=== PATIENT | male | born 1995 | race Hispanic/Latino ===

== ENCOUNTER 2016-03-06 17:35 | Emergency (ER) | payer OTHER ==
[~2016-03-06] VITALS: Ht 167.6 cm; Wt 68.0 kg
[~2016-03-06 17:35] MED LIST: CEFP500T4 PO; GNT.3OO351 OD
[2016-03-06] MEDS ORDERED: FAMOTIDINE 20MG/2ML IV (PEPCID) IV STA (18:13)
--- NOTE | 2016-03-06 18:13 | ED Abdominal Pain ---
General Chief Complaint: Abdominal/GI Problems Stated Complaint: L SIDE ABD PAIN Nursing Triage Note: L SIDE PAIN ONSET A COUPLE DAYS AGO. UNABLE TO WORK TODAY DUE TO PAIN. PAIN IS WORSE WITH MOVEMENT. Sepsis Screen: No Definite Risk Source of Information: Patient Exam Limitations: No Limitations (HARMONY CARTER MD) History of Present Illness Time Seen By Provider: 17:36 Initial Comments This 20-year-old man presents to the emergency room with complaints of left flank pain 2 days. Pain has worsened today. He reports having dry heaves in the mornings for several months. He denies any urinary changes, dysuria, nausea , diarrhea, constipation, fever, or cough. Pain is worse with inspiration. He took ibuprofen yesterday but no pain medications today. He typically drinks alcohol weekly but just returned from a vacation in [place] where he drank more excessively. Patient has a history of spontaneous pneumothorax for which she was admitted for observation. No procedures were required. Last meal was steak and tacos within the last hour. Eating did not seem to affect his pain. He rates his pain as 8/10. (HARMONY CARTER MD) Allergies and Home Medications Allergies Coded Allergies: No Known Drug Allergies (Verified , 01/11/09) Home Medications Cyclobenzaprine HCl 10 Mg Tablet #15 10 MG PO Q8H Prescribed by: DAMIAN MUIR on 03/06/162004 Hyoscyamine Sulfate 0.125 Mg Tab.subl #15 1-2 TAB SL Q4H Prescribed by: DAMIAN MUIR on 03/06/162004 Naproxen 500 Mg Tablet #20 500 MG PO BID Prescribed by: DAMIAN MUIR on 03/06/162004 Ondansetron 4 Mg Tab.rapdis #10 4 MG PO Q4H Prescribed by: DAMIAN MUIR on 03/06/162004 Pantoprazole Sodium 40 Mg Tablet.dr #15 40 MG PO DAILY Prescribed by: DAMIAN MUIR on 03/06/162004 Review of Systems Constitutional: no symptoms reported EENTM: No Symptoms Reported Respiratory: See HPI Cardiovascular: No Symptoms Reported Gastrointestinal: See HPI Genitourinary: No Symptoms Reported Musculoskeletal: see HPI Skin: no symptoms reported Psychiatric/Neurological: No Symptoms Reported Endocrine: No Symptoms Reported (HARMONY CARTER MD) Past Rhdlrgy-Vxnjrc-Rsuhjy Hx Patient Social History Alcohol Use: Rarely Uses Recreational Drug Use: No Smoking Status: Never a Smoker Recent Foreign Travel: No Contact w/Someone Who Travel: No Recent Infectious Disease Expo: No Recent Hopitalizations: No Physical Abuse Screen: No Sexual Abuse: No (HARMONY CARTER MD) Surgeries HX Surgeries: Yes (HERNIA, RT WRIST) Surgeries: Abdominal (inguinal hernia), Orthopedic (HARMONY CARTER MD) Respiratory Hx Respiratory Disorders: Yes (spontaneous pneumothorax) (HARMONY CARTER MD) Cardiovascular Hx Cardiac Disorders: No (HARMONY CARTER MD) Neurological Hx Neurological Disorders: No (HARMONY CARTER MD) Reproductive System Hx Reproductive Disorders: No (HARMONY CARTER MD) Genitourinary Hx Genitourinary Disorders: No (HARMONY CARTER MD) Gastrointestinal Hx Gastrointestinal Disorders: No (HARMONY CARTER MD) Musculoskeletal Hx Musculoskeletal Disorders: No (HARMONY CARTER MD) Endocrine Hx Endocrine Disorders: No (HARMONY CARTER MD) HEENT HX ENT Disorders: No (HARMONY CARTER MD) Cancer Hx Cancer: No (HARMONY CARTER MD) Psychosocial Hx Psychiatric Problems: No (HARMONY CARTER MD) Integumentary HX Skin/Integumentary Disorder: No (HARMONY CARTER MD) Blood Transfusions Hx Blood Disorders: No (HARMONY CARTER MD) Family Medical History Significant Family History: No Pertinent Family Hx (HARMONY CARTER MD) Physical Exam Vital Signs VS - Last 72 Hours, by Label 03/06/16 03/06/16 17:56 20:13 Temp 96.7 Pulse 77 82 Resp 16 18 B/P 110/74 Pulse Ox 96 (DAMIAN MUIR DO) Vital Signs Capillary Refill : Less Than 3 Seconds (HARMONY CARTER MD) General Appearance: WD/WN no apparent distress HEENT: PERRL/EOMI normal ENT inspection Neck: normal inspection Respiratory: lungs clear normal breath sounds no respiratory distress no accessory muscle use other (left lower posterior chest wall tender to palpation) Cardiovascular: regular rate, rhythm no edema no murmur Gastrointestinal: normal bowel sounds soft guarding tenderness (left upper quadrant and epigastrium) other (palpation of the right upper quadrant causes pain in the left upper quadrant) Extremities: normal inspection no pedal edema Back: normal inspection 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 no motor/sensory deficits alert normal mood/affect oriented x 3 Skin: normal color diaphoresis (HARMONY CARTER MD) Progress/Results/Core Measures Results/Orders Lab Results Laboratory Tests Test 03/06/16 18:20 03/06/16 18:41 Range/Units Alanine Aminotransferase (ALT/SGPT) 26 0-55 U/L Albumin 5.0 H 3.2-4.5 G/DL Alkaline Phosphatase 86 40-136 U/L Anion Gap 11 5-14 MMOL/L Aspartate Amino Transf (AST/SGOT) 28 5-34 U/L BUN/Creatinine Ratio 10 Basophils # (Auto) 0.0 0.0-0.1 10^3/uL Basophils (%) (Auto) 0 0-10 % Blood Urea Nitrogen 10 7-18 MG/DL Calcium Level 9.6 8.5-10.1 MG/DL Carbon Dioxide Level 26 21-32 MMOL/L Chloride Level 103 98-107 MMOL/L Creatinine 0.97 0.60-1.30 MG/DL Eosinophils # (Auto) 0.0 0.0-0.3 10^3/uL Eosinophils (%) (Auto) 0 0-10 % Estimat Glomerular Filtration Rate > 60 Glucose Level 92 70-105 MG/DL Hematocrit 46 40-54 % Hemoglobin 15.3 13.3-17.7 G/DL Lipase 18 8-78 U/L Lymphocytes # (Auto) 1.9 1.0-4.0 X 10^3 Lymphocytes (%) (Auto) 20 12-44 % Mean Corpuscular Hemoglobin 28 25-34 PG Mean Corpuscular Hemoglobin Concent 34 32-36 G/DL Mean Corpuscular Volume 84 80-99 FL Mean Platelet Volume 10.1 7.4-10.4 FL Monocytes # (Auto) 1.1 H 0.0-1.0 X 10^3 Monocytes (%) (Auto) 12 0-12 % Neutrophils # (Auto) 6.1 1.8-7.8 X 10^3 Neutrophils (%) (Auto) 67 42-75 % Platelet Count 229 130-400 10^3/uL Potassium Level 4.0 3.6-5.0 MMOL/L Red Blood Count 5.45 4.35-5.85 10^6/uL Red Cell Distribution Width 13.0 10.0-14.5 % Sodium Level 140 135-145 MMOL/L Total Bilirubin 0.6 0.1-1.0 MG/DL Total Protein 7.9 6.4-8.2 G/DL White Blood Count 9.1 4.3-11.0 10^3/uL Urine Bacteria NEGATIVE /HPF Urine Bilirubin NEGATIVE NEGATIVE Urine Casts NONE /LPF Urine Clarity SLIGHTLY CLOUDY Urine Color YELLOW Urine Crystals NONE /LPF Urine Culture Indicated NO Urine Glucose (UA) NEGATIVE NEGATIVE Urine Ketones NEGATIVE NEGATIVE Urine Leukocyte Esterase NEGATIVE NEGATIVE Urine Mucus NEGATIVE /LPF Urine Nitrite NEGATIVE NEGATIVE Urine Protein NEGATIVE NEGATIVE Urine RBC NONE /HPF Urine RBC (Auto) NEGATIVE NEGATIVE Urine Specific Brohman 1.005 L 1.016-1.022 Urine Urobilinogen NORMAL NORMAL MG/DL Urine WBC 0-2 /HPF Urine pH 7 5-9 (INGA,DAMIAN K DO) Lab Results Laboratory Tests Test 03/06/16 18:20 Range/Units Basophils # (Auto) 0.0 0.0-0.1 10^3/uL Basophils (%) (Auto) 0 0-10 % Eosinophils # (Auto) 0.0 0.0-0.3 10^3/uL Eosinophils (%) (Auto) 0 0-10 % Hematocrit 46 40-54 % Hemoglobin 15.3 13.3-17.7 G/DL Lymphocytes # (Auto) 1.9 1.0-4.0 X 10^3 Lymphocytes (%) (Auto) 20 12-44 % Mean Corpuscular Hemoglobin 28 25-34 PG Mean Corpuscular Hemoglobin Concent 34 32-36 G/DL Mean Corpuscular Volume 84 80-99 FL Mean Platelet Volume 10.1 7.4-10.4 FL Monocytes # (Auto) 1.1 H 0.0-1.0 X 10^3 Monocytes (%) (Auto) 12 0-12 % Neutrophils # (Auto) 6.1 1.8-7.8 X 10^3 Neutrophils (%) (Auto) 67 42-75 % Platelet Count 229 130-400 10^3/uL Red Blood Count 5.45 4.35-5.85 10^6/uL Red Cell Distribution Width 13.0 10.0-14.5 % White Blood Count 9.1 4.3-11.0 10^3/uL (HARMONY CARTER MD) My Orders Orders-DAMIAN MUIR DO Ct Abdomen/Pelvis W (03/06/16 19:08) Iohexol Injection (Omnipaque 350 Mg/Ml 1 (03/06/16 19:30) Ns (Ivpb) (Sodium Chloride 0.9% Ivpb Bag (03/06/16 19:30) (DAMIAN MUIR DO) Medications Given in ED Current Medications Medications Dose Ordered Sig/Kathy Route Start Time Stop Time Status Last Admin Dose Admin Al Hydrox/Mg Hydrox/Simethicone 30 ml ONCE ONCE PO 03/06/16 18:15 03/06/16 18:16 DC 03/06/16 18:22 30 ML Fentanyl Citrate 50 mcg ONCE ONCE IVP 03/06/16 18:15 03/06/16 18:16 DC 03/06/16 18:21 50 MCG Iohexol 100 ml ONCE ONCE IV 03/06/16 19:30 03/06/16 19:31 DC 03/06/16 19:22 100 ML Lidocaine HCl 15 ml ONCE ONCE PO 03/06/16 18:15 03/06/16 18:16 DC 03/06/16 18:22 15 ML Sodium Chloride 100 ml ONCE ONCE IV 03/06/16 19:30 03/06/16 19:31 DC 03/06/16 19:22 100 ML (DAMIAN MUIR DO) Medications Given in ED Current Medications Medications Dose Ordered Sig/Kathy Route Start Time Stop Time Status Last Admin Dose Admin Al Hydrox/Mg Hydrox/Simethicone 30 ml ONCE ONCE PO 03/06/16 18:15 03/06/16 18:16 DC 03/06/16 18:22 30 ML Fentanyl Citrate 50 mcg ONCE ONCE IVP 03/06/16 18:15 03/06/16 18:16 DC 03/06/16 18:21 50 MCG Lidocaine HCl 15 ml ONCE ONCE PO 03/06/16 18:15 03/06/16 18:16 DC 03/06/16 18:22 15 ML (HARMONY CARTER MD) Vital Signs/I&O Vital Sign - Last 12Hours 03/06/16 03/06/16 17:56 20:13 Temp 96.7 Pulse 77 82 Resp 16 18 B/P 110/74 Pulse Ox 96 (DAMIAN MUIR DO) Blood Pressure Mean: 86 Progress Note #1: Time: 18:22 Progress Note Patient was seen and examined. Labs were drawn. Trial of GI cocktail and Pepcid will be administered. Chest x-ray was ordered as patient had a prior spontaneous pneumothorax on the left. Progress Note #2: Time: 18:41 Progress Note Patient has had modest improvement in pain with GI cocktail and Pepcid. Labs and UA are pending. X-ray was unremarkable. Care of this patient was transferred to Dr. Muir at this time. (HARMONY CARTER MD) Progress Note : Progress Note 1900--ASSUMED CARE FROM DR. CARTER, ALL STUDIES BACK PT STATES HE HAD HAD LUQ/LEFT FLANK PAIN OFF AND ON TODAY, BUT HAS HAD DRY HEAVES EVERY DAY FOR YEARS--STATES HE HAS IT IN THE MORNING WHEN HE IS HUNGRY, BUT ALSO HAS IT THROUGHOUT THE DAY. NO DIFFERENT TODAY, HAS NOT SOUGHT CARE UNTIL TODAY. HAS TAKEN NOTHING FOR SYMPTOMS. PAIN IS WORSE WITH MOVEMENTS, POSITIONS OR WITH LIFTING THINGS. NO INJURY NO DIARRHEA NO URINARY SYMPTOMS PT STATES ALL SYMPTOMS ARE GONE AT THIS TIME. (DAMIAN MUIR DO) Diagnostic Imaging Diagonstic Imaging: Xray Plain Films/CT/US/NM/MRI: chest Comments Chest x-ray viewed by me and report reviewed. See report below: NAME: [facility] REC#: [id number] PT STATUS: REG ER : 1995 PHYSICIAN: HARMONY CARTER MD ADMIT DATE: 03/06/16/ER Draft Date of Exam:03/06/16 CHEST PA/LAT (2 VIEW) INDICATION: Left-sided chest wall pain. No history of trauma. Comparison with 08/01/2015. FINDINGS: The lungs are well aerated. There are no infiltrates. The heart is not enlarged. No hilar adenopathy. No evidence of pneumothorax or pleural effusions. No bony abnormalities. IMPRESSION: Normal PA and and lateral chest. Dictated on workstation # [id number] Dict: 03/06/16 1831 Trans: 03/06/16 183 [facility] [id number] Interpreted by: LINDA BEYER MD (HARMONY CARTER MD) Comments CT ABDOMEN/PELVIS--NO ACUTE PROCESS, PER RADIOLOGIST REPORT AT 1955 Reviewed: Reviewed by Me (DAMIAN MUIR DO) Departure Impression Impression: Primary Impression: Abdominal pain Additional Impression: CHRONIC NAUSEA AND DRY HEAVES Disposition: HOME, SELF-CARE Condition: Improved Departure-Patient Inst. Referrals: NO,LOCAL PHYSICIAN (PCP/Family) Primary Care Physician Patient Instructions: Acute Abdomen (Belly Pain), Adult (DC), Nausea and Vomiting, Adult (DC) Add. Discharge Instructions: CLEAR LIQUIDS--WATER, BROTH, JELLO, GATORADE. NO ALCOHOL BLAND DIET--NO SPICY, GREASY/HIGH FAT OR ACIDIC FOOD OR DRINK FOLLOW UP WITH DR OF CHOICE FOR FURTHER CARE--LIST PROVIDED All discharge instructions reviewed with patient and/or family. Voiced understanding. Scripts Ondansetron (Zofran Odt)4 Mg Tab.rapdis4 Mg PO Q4H Nausea/Vomiting #10 TAB Prov:DAMIAN MUIR DO 03/06/16 Pantoprazole Sodium (Protonix)40 Mg Tablet.dr40 Mg PO DAILY #15 TAB Prov:DAMIAN MUIR DO 03/06/16 Naproxen 500 Mg [id number] Mg PO BID #20 TAB Prov:DAMIAN MUIR DO 03/06/16 Hyoscyamine Sulfate (Levsin-Sl)0.125 Mg Tab.subl1-2 Tab SL Q4H Abdominal Pain # 15 TAB Prov:DAMIAN MUIR DO 03/06/16 Cyclobenzaprine HCl 10 Mg Iopjtu24 Mg PO Q8H #15 TAB Prov:DAMIAN MUIR DO 03/06/16 Work/School Note: Local Medical Staff Listing HARMONY CARTER MD Mar 06, 2016 18:12 DAMIAN MUIR DO Mar 06, 2016 20:05
[2016-03-06] MEDS ORDERED: ANTACID SUSP 30 ML UDC (MYLANTA) PO ONE (18:15)
[2016-03-06] MEDS ORDERED: fentaNYL INJECTION 100 MCG/2 ML AMP IVP ONE (18:15)
[2016-03-06] MEDS ORDERED: LIDOCAINE 2% VISCOUS 15 ML UDC PO ONE (18:15)
--- NOTE | 2016-03-06 18:35 | Diagnostic Imaging Report ---
INDICATION: Left-sided chest wall pain. No history of trauma. Comparison with 08/01/2015. FINDINGS: The lungs are well aerated. There are no infiltrates. The heart is not enlarged. No hilar adenopathy. No evidence of pneumothorax or pleural effusions. No bony abnormalities. IMPRESSION: Normal PA and and lateral chest. Dictated by: Dictated on workstation # [id number]
[2016-03-06 18:37] LABS: BASOPHILS % (AUTO) 0 % (0-10); EOSINOPHILS % (AUTO) 0 % (0-10); LYMPHOCYTES # (AUTO) 1.9 X 10^3 (1.0-4.0); LYMPHOCYTES % (AUTO) 20 % (12-44); MEAN CORPUSCULAR HEMOGLOBIN 28 PG (25-34); MEAN CORPUSCULAR HGB CONC 34 G/DL (32-36); MEAN CORPUSCULAR VOLUME 84 FL (80-99); MEAN PLATELET VOLUME 10.1 FL (7.4-10.4); MONOCYTES # (AUTO) 1.1 X 10^3 (0.0-1.0); MONOCYTES % (AUTO) 12 % (0-12); NEUTROPHILS # (AUTO) 6.1 X 10^3 (1.8-7.8); NEUTROPHILS % (AUTO) 67 % (42-75); PLATELET COUNT 229 10^3/uL (130-400); RED BLOOD COUNT 5.45 10^6/uL (4.35-5.85); WHITE BLOOD COUNT 9.1 10^3/uL (4.3-11.0)
[2016-03-06 18:49] LABS: BILIRUBIN,URINE NEGATIVE (NEGATIVE); KETONES,URINE NEGATIVE (NEGATIVE); LEUKOCYTE ESTERASE ,URINE NEGATIVE (NEGATIVE); NITRITE,URINE NEGATIVE (NEGATIVE); PH,URINE 7 (5-9); PROTEIN,URINE NEGATIVE (NEGATIVE); UROBILINOGEN,URINE NORMAL (NORMAL)
[2016-03-06 18:56] LABS: ANION GAP 11 MMOL/L (5-14); BLOOD UREA NITROGEN 10 MG/DL (7-18); BUN/CREATININE RATIO 10; CARBON DIOXIDE 26 MMOL/L (21-32); CHLORIDE 103 MMOL/L (98-107); CREATININE SERUM 0.97 MG/DL (0.60-1.30); SODIUM 140 MMOL/L (135-145)
[2016-03-06 18:57] LABS: ALANINE AMINOTRANSFERASE 26 U/L (0-55); ASPARTATE AMINO TRANSFERASE 28 U/L (5-34); BILIRUBIN,TOTAL 0.6 MG/DL (0.1-1.0); CALCIUM 9.6 MG/DL (8.5-10.1); GFR ESTIMATED > 60; GLUCOSE 92 MG/DL (70-105); LIPASE 18 U/L (8-78); TOTAL PROTEIN 7.9 G/DL (6.4-8.2)
[2016-03-06 19:01] LABS: WBC,URINE 0-2 /HPF
[2016-03-06] MEDS ORDERED: NS 100 ML (IVPB) BAG IV ONE (19:30)
[2016-03-06] MEDS ORDERED: IOHEXOL 350 MG/ML 100 ML (OMNIPAQUE 350) VIAL IV ONE (19:30)
--- NOTE | 2016-03-06 19:45 | Diagnostic Imaging Report ---
PROCEDURE: CT abdomen and pelvis with contrast. TECHNIQUE: Multiple contiguous axial images were obtained through the abdomen and pelvis after administration of intravenous contrast. INDICATION: Left flank pain x2 days. FINDINGS: The lung bases are clear. The kidneys show symmetrical nephrogram effect. There are no renal calculi. No renal obstruction. No renal masses. Ureters are not dilated. Bladder appears normal with no calculi. Liver appears normal. Gallbladder and bile ducts are normal. The pancreas and spleen are normal. Adrenal glands are not enlarged. Aorta and abdominal vessels enhance in a normal fashion. Stomach and small bowel appear normal with no distended bowel loops. There is normal stool and gas pattern to the colon. The appendix is not dilated. No evidence of colitis or diverticulitis. There is no free air or free fluid. IMPRESSION: Normal CT scan of the abdomen and pelvis with contrast. Dictated by: Dictated on workstation # [id number]
[2016-03-06] MEDS ORDERED: ONDA4TAB8 PO (20:05)
[2016-03-06] MEDS ORDERED: NAPR500T3 PO (20:05)
[2016-03-06] MEDS ORDERED: HYOS0.1283 SL (20:05)
[2016-03-06] MEDS ORDERED: CYCL10TA9 PO (20:05)
[2016-03-06] MEDS ORDERED: PANT40TA2 PO (20:05)
[2016-03-06 20:13] VITALS: BP 124/71
== END 2016-03-06 20:12 | disposition home or self-care (01) ==
LOC: EDUNIT# 17:35 → ER 17:37
DX: R10.32 Left lower quadrant pain (principal); R10.13 Epigastric pain; R11.0 Nausea
CPT/HCPCS: 36415; 71020; 74177; 80053; 81000; 83690; 85025; 96374; 96375

== ENCOUNTER 2022-03-28 12:42 | Outpatient (CLI) | payer OTHER ==
[~2022-03-28] VITALS: Ht 182.9 cm; Wt 86.1 kg
[~2022-03-28 12:42] MED LIST changes: +CYCL10TA25 PO; +HYOS0.1283 SL; +NAPR-915 PO; +ONDA4TAB8 PO; +PANT40TA2 PO
== END 2022-03-28 16:03 ==
LOC: PREOP 12:42
PROVIDERS: ATTEND Surgery
DX: Z01.818 Encounter for other preprocedural examination (principal)

== ENCOUNTER 2022-03-30 10:24 | Day surgery (SDC) | payer OTHER ==
[~2022-03-30] VITALS: Ht 182 cm; Wt 86.1 kg
[2022-03-30] MEDS ORDERED: LACTATED RINGERS 1,000 ML IV STA (10:25)
[2022-03-30] MEDS ORDERED: HURRICAINE EXT TUBE (BENZOCAINE) XX PRN (10:30)
[2022-03-30] MEDS ORDERED: LIDOCAINE JELLY 2% 6 ML SYRINGE MM PRN (10:30)
[2022-03-30 10:52] VITALS: BP 130/81
[2022-03-30] MEDS ORDERED: PROPOFOL INJECTION 50 ML IV ONE (11:35)
[2022-03-30] MEDS ORDERED: MIDAZOLAM 2 MG/2 ML (VERSED) VIAL ONE (11:35)
[2022-03-30] MEDS ORDERED: LIDOCAINE JELLY 2% 6 ML SYRINGE ONE (11:44)
[2022-03-30] MEDS ORDERED: proPOfol 200 MG/20 ML (DIPRIVAN) VIAL IV ONE (12:22)
[2022-03-30 12:25] VITALS: BP 108/61
[2022-03-30] MEDS ORDERED: PANT40TA52 PO (12:32)
--- NOTE | 2022-03-30 12:36 | Progress Note-Pre Operative ---
Pre-Operative Progress Note Date of Available H&P: Mar 30, 2022 Date H&P Reviewed: Mar 30, 2022 Time H&P Reviewed: 11:15 History & Physical: No changes noted Pre-Operative Diagnosis: perirectal pain, diarrhea, red blood per rectum and dark tarry HERMANN GLEASON MD Mar 30, 2022 12:36
--- NOTE | 2022-03-30 12:37 | Anesthesia-General Post-Op ---
MAC Patient Condition Mental Status/LOC: Same as Preop Cardiovascular: Satisfactory Nausea/Vomiting: Absent Respiratory: Satisfactory Pain: Controlled Complications: Absent Post Op Complications Complications None Follow Up Care/Instructions Patient Instructions None needed. Anesthesiology Discharge Order Discharge Order Patient is doing well, no complaints, stable vital signs, no apparent adverse anesthesia problems. No complications reported per nursing. PALMIRA MARTINEZ CRNA Mar 30, 2022 12:37
--- NOTE | 2022-03-30 12:38 | Progress Note-Post Operative ---
Post-Operative Progess Note Surgeon (s)/Occupational Health Physiotherapist (s) Surgeon HERMANN GLEASON MD Occupational Health Physiotherapist: none Pre-Operative Diagnosis perirectal pain, diarrhea, red blood per rectum and dark tarry Post-Operative Diagnosis reflux esophagitis(grade B), moderate gastritis. anterior anal fissure, mild chronic stage 2 ext and int hemorrhoids. Procedure & Operative Findings Date of Procedure 03/30/22 Procedure Performed/Findings EGD with bx. Colonoscopy Anesthesia Type mac Estimated Blood Loss Estimated blood loss (mL): minimal Specimens/Packing Specimens Removed ge jxn, antrum HERMANN GLEASON MD Mar 30, 2022 12:38
[2022-03-30 12:40] VITALS: BP 110/59
[2022-03-30] MEDS ORDERED: ONDANSETRON 4 MG/2 ML (SDV) Z0FRAN IVP PRN (12:45)
[2022-03-30] MEDS ORDERED: ONDANSETRON 4 MG (ZOFRAN) ORAL DISSOLVE TAB PO PRN (12:45)
[2022-03-30 13:11] VITALS: BP 110/59
--- NOTE | 2022-03-30 20:32 | OPERATIVE REPORT ---
DATE OF SERVICE: 03/30/2022 ATTENDING PRIMARY CARE PHYSICIAN: Dr. Papa Treadwell. PREOPERATIVE DIAGNOSES: Perianal and rectal pain, diarrhea, red blood per rectum, dark tarry stools, reflux. POSTOPERATIVE DIAGNOSES: Reflux esophagitis [place] grade B, no hiatal hernia, moderate gastritis, anterior anal fissure, mild chronic stage II external and internal hemorrhoids. PROCEDURE: EGD with biopsy, colonoscopy. SURGEON: Hermann Gleason MD ANESTHESIA: Monitored anesthesia care. ESTIMATED BLOOD LOSS: Minimal. FINDINGS: Reflux esophagitis [place] grade B, no hiatal hernia, moderate gastritis, anterior anal fissure, mild chronic stage II external and internal hemorrhoids. DISPOSITION: The patient tolerated the procedure well. INDICATIONS: The patient is a 26-year-old male who was referred over to us for blood per rectum as well as anorectal pain. He reports that this has been going on for several months and exacerbated with bowel movements. He reports that he has also had issues with diarrhea on an intermittent basis and at times did have 3-4 loose bowel movements on a daily basis. He also does report issues with heartburn and reflux; however, he does do caffeinated beverages as well as spicy foods. He reports that he may have some mild abdominal cramping in the left upper abdominal quadrant; however, never severe. DESCRIPTION OF PROCEDURE: The patient was brought to the endoscopy suite and laid in the left lateral decubitus position. After adequate IV pain and sedative medications and monitored anesthesia care, the mouthpiece was applied. The endoscope was placed in the mouth visualizing the pharynx and hypopharyngeal region. Vocal cords, epiglottis and vallecula identified and appeared to be normal. The endoscope was then gently intubated into the esophageal opening and esophagus insufflated. The endoscope was then advanced into the first, second and third portions of esophagus at the level of the GE junction, reflux esophagitis, a [place] grade B identified. No ulcers or strictures. A biopsy was taken with forceps with visualization of good hemostasis. The endoscope was then advanced into the stomach and endoscope retroflexed visualizing no hiatal hernia. There was moderate gastritis, more towards the stomach antrum, no formal ulcers, polyps, or any neoplasms. A biopsy was taken of the antrum to rule out H. pylori with visualization of good hemostasis. The endoscope was then advanced to the pylorus and the first and second portion of the duodenum, which appeared normal with no other lesions identified. The endoscope was then slowly withdrawn while taking a second look and suctioning of residual air with no additional findings. A digital rectal examination was performed, which did show mild chronic stage II external and internal hemorrhoids, not actively edematous nor inflamed and no bleeding. Normal sphincter tone was felt and there were no palpable masses. There was an anterior anal fissure, which was identified and small and appeared to be healing. Prostate gland was palpable and appeared normal. The endoscope was then intubated into the anus, rectum gently insufflated. The endoscope was then advanced to the valves of Dhillon of the rectum with no polyps or any neoplasms identified. Through the sigmoid colon, no diverticulosis identified. The endoscope was then advanced to the remainder of the descending, transverse and ascending colon to the cecum, which were normal. There were no mucosal inflammatory changes as well as no polyps or any neoplasms. The endoscope was then slowly withdrawn while taking a second look and suctioning of residual air with no additional findings. The patient tolerated the procedure well. We will recommend the necessary lifestyle and dietary accommodation including small and more frequent meals, avoidance of eating at night as well as head elevation while lying supine. He also needs to decrease caffeinated beverages as well as spicy, greasy and acidic foods. We will also start him on Protonix 40 mg daily. He also needs to proceed with a high-fiber diet with addition of a fiber supplement, which should equal or exceed 30 grams daily to promote soft consistency stools more on a daily basis and decrease the episodes of liquid diarrhea or constipation and hard stools and have a baseline soft consistency stools on a daily basis, which should help resolve and allow the fissure to heal and prevent recurrence. This will also prevent other benign issues of the colon, rectum and anus. No polyps were identified. From a standpoint of followup colonoscopy, he does not need another one until he is age 45, unless he is symptomatic. Job ID: [id number] DocumentID: [id number] Dictated Date: 03/30/2022 12:27:56 Fruit Grader Operator Date: 03/30/2022 20:30:00 Dictated By: HERMANN GLEASON MD
== END 2022-03-30 13:11 | disposition home or self-care (01) ==
LOC: ENDO 10:24
PROVIDERS: ATTEND Surgery
DX: K60.2 Anal fissure, unspecified (principal); K21.01 Gastro-esophageal reflux disease with esophagitis, with bleeding; K29.71 Gastritis, unspecified, with bleeding; K64.1 Second degree hemorrhoids; K64.4 Residual hemorrhoidal skin tags; Z28.310 Unvaccinated for COVID-19